=== PATIENT | female | born 1930 | race Caucasian/White ===

== ENCOUNTER → 2017-11-14 | Emergency (ER) | payer MEDICARE, OTHER | END | disposition home or self-care (01) | LOC: E/R 15:07 | DX: R51 Headache (principal); I10 Essential (primary) hypertension; Z79.82 Long term (current) use of aspirin | CPT/HCPCS: 70450; 99284-25 ==

== ENCOUNTER 2018-01-14 14:42 | Emergency (ER) | payer MEDICARE, OTHER ==
[2018-01-14] MEDS: morphine 2 MG INJ IV (21:35)
[2018-01-14] MEDS: SOD CHLORIDE 0.9% 1,000 ML IV (21:39)
[2018-01-14 21:48] LABS: ADD MAN DIFF? NO
[2018-01-14 21:50] LABS: BASOPHILS % 0.3 % (0.0-2.0); EOSINOPHILS # 0.2 10^3/ul (0.0-0.5); EOSINOPHILS % 1.8 % (0.0-7.0); HEMATOCRIT 44.7 % (37.0-47.0); HEMOGLOBIN 14.6 g/dl (12.0-16.0); LYMPHOCYTES # 4.3 10^3/ul (0.8-2.9); LYMPHOCYTES % 45.3 % (15.0-51.0); MEAN CORPUSCULAR HGB CONC 32.7 g/dl (32.0-37.0); MEAN PLATELET VOLUME 9.8 fl (7.4-10.4); MONOCYTES % 10.8 % (0.0-11.0); NEUTROPHILS % 41.6 % (39.0-77.0); PLATELET COUNT 314 10^3/UL (140-415); RED BLOOD COUNT 4.86 10^6/ul (4.20-5.40); RED CELL DISTRIBUTION WIDTH 14.2 % (11.5-14.5)
[2018-01-14 21:50] LABS: WHITE BLOOD COUNT 9.5 10^3/ul (4.8-10.8)
[2018-01-14 22:12] LABS: ANION GAP 12 (8-16); BLOOD UREA NITROGEN 17 mg/dl (7-20); CALCIUM 9.5 mg/dl (8.4-10.2); CARBON DIOXIDE 33 mmol/L (21-31); CHLORIDE 101 mmol/L (97-110); GLUCOSE 92 mg/dl (70-220); POTASSIUM 3.4 mmol/L (3.5-5.1); SODIUM 143 mmol/L (135-144)
[2018-01-14 22:22] LABS: B-TYPE NATRIURETIC PEPTIDE 105 PG/ML (0-450)
[2018-01-14 22:24] LABS: TROPONIN-I < 0.012 ng/ml (0.00-0.12)
== END 2018-01-14 23:51 | disposition home or self-care (01) ==
LOC: E/R 14:42
DX: J06.9 Acute upper respiratory infection, unspecified (principal); J20.9 Acute bronchitis, unspecified; I10 Essential (primary) hypertension; Z79.82 Long term (current) use of aspirin
CPT/HCPCS: 36415; 71045; 80048; 83880; 84484; 85025; 87400; 93005; 99285-25